=== PATIENT | male | born 1955 | race Hispanic/Latino ===

== ENCOUNTER → 2017-05-21 | Outpatient (CLI) | payer OTHER ==
--- NOTE | 2017-05-21 18:28 | Diagnostic Imaging Report ---
PROCEDURE:X-RAY RIGHT KNEE, THREE OR MORE VIEWS COMPARISON:None. INDICATIONS:FALL, RIGHT KNEE PAIN FINDINGS: The bones are well-mineralized. There are no subluxations, lytic or blastic lesions. Hypo-density in the superior aspect of the patella which may represent bone contusion, incomplete fracture, or cartilaginous trauma with underlying bony contusion. Associated moderate joint effusion. CONCLUSION: Hypo-density in the superior aspect of the patella which may represent bone contusion, incomplete fracture, or cartilaginous trauma with underlying bony contusion. Dictated by: Vick Hernandez M.D. on 05/21/2017 at 18:37 Electronically approved by: Vick Hernandez M.D. on 05/21/2017 at 18:37
== END ==
LOC: RAD 15:01
PROVIDERS: ATTEND Family Medicine
DX: M25.561 Pain in right knee (principal)

== ENCOUNTER → 2017-06-04 | Outpatient (CLI) | payer OTHER ==
--- NOTE | 2017-06-05 09:21 | Diagnostic Imaging Report ---
Right knee MRI without contrast. History: Knee pain. Medial meniscus tear. Fall. Decreased range of motion. Comparison: None. Technique: Multiplanar multi-sequence MRI of the knee without contrast. Findings: Medial compartment: There is a complex undersurface tear at the posterior horn of the medial meniscus best seen on sagittal series 2 image 13. The medial compartmental articular cartilage surfaces are thinned with regions of fraying and deep fissuring. There is mild bone marrow edema along the posterior medial femoral condyle. The medial collateral ligament complex is intact. Lateral compartment: No meniscal tear or cartilage abnormality. The LCL complex is normal. Intercondylar notch: The ACL and PCL are intact. Patellofemoral compartment: There is articular cartilage fraying and deep fissuring in the patellofemoral compartment with underlying bone marrow edema best seen on series 4 image 12. Extensor mechanism: The quadriceps and patellar tendons are normal. Other findings: There is a joint effusion and synovitis. There is no acute fracture, subluxation or avascular necrosis. IMPRESSION: Complex meniscus tear with mild degenerative arthrosis in the medial compartment of the knee. Articular cartilage fraying and deep fissuring in the patellofemoral compartment with underlying bone marrow edema. Signed by: Dr. Félix Avila M.D. on 06/05/2017 9:17 AM
== END ==
LOC: MRI 14:32
PROVIDERS: ATTEND Specialist
DX: S83.241A Other tear of medial meniscus, current injury, right knee, initial encounter (principal)

== ENCOUNTER → 2017-06-26 | Day surgery (SDC) | payer OTHER ==
[~2017-06-26] MED LIST: BUPIVACAINE 0.5%/EPI 30 ML SDV INJ ONE; CEFAZOLIN SOD 2 GM/D5W 50ML 50 ML IV ONE; DEXAMETHASONE SOD PHOS INJ 4 MG/ML VIAL ONE; FENTANYL CITRATE/PF 100MCG/2 ML INJ ONE; KETOROLAC TROMETHAMINE 30 MG/ML VIAL ONE; LIDOCAINE HCL 2% LOCAL INJ 5 ML SDV VIAL INJ ONE; LISINOPRIL40 MG PO; MIDAZOLAM HCL 2 MG/2 ML VIAL ONE; ONDANSETRON HCL INJ 2 MG/ML VIAL ONE; PRAVASTATIN SOD40 MG PO; PROPOFOL IV EMULSION 10 MG/ML 20 ML VIAL ONE; SERTRALINE HCL100 MG PO; SEVOFLURANE INHAL SOLN 250 ML PEN BTL ONE; TRAZODONE HCL50 MG PO
--- OUTSIDE RECORDS SUMMARY | 2017-06-26 09:22 | XMS REPORT ---
Author Author [facility] Address Unknown Phone Unavailable Care Team Providers Care Patternmaker Hand Name Role Phone SEAN RAE Unavailable Unavailable MARTY IZQUIERDO Unavailable Unavailable Problems This patient has no known problems. Allergies, Adverse Reactions, Alerts This patient has no known allergies or adverse reactions. Medications This patient has no known medications. Results Test Description Test Time Test Comments Text Results Atomic Results Result Comments MRI RIGHT KNEE WO [place] [address] Patient Name: ELIZABETH CAMPOS MR #: [id number] : 1955 Age/Sex: 62/M Req # : [id number] Adm Physician: Ordered by: SEAN RAE MD Report #: [id number] Location: MRI Room/Bed: Procedure: [id number] MRI/MRI RIGHT KNEE WO Exam Date: Exam Time: REPORT STATUS: Signed Right knee MRI without contrast. History: Knee pain. Medial meniscus tear. Fall. Decreased range of motion. Comparison: None. Technique: Multiplanar multi-sequence MRI of the knee without contrast. Findings: Medial compartment: There is a complex undersurface tear at the posterior horn of the medial meniscus best seen on sagittal series 2 image 13. The medial compartmental articular cartilage surfaces are thinned with regions of fraying and deep fissuring. There is mild bone marrow edema along the posterior medial femoral condyle. The medial collateral ligament complex is intact. Lateral compartment: No meniscal tear or cartilage abnormality. The LCL complex is normal. Intercondylar notch: The ACL and PCL are intact. Patellofemoral compartment: There is articular cartilage fraying and deep fissuring in the patellofemoral compartment with underlying bone marrow edema best seen on series 4 image 12. Extensor mechanism: The quadriceps and patellar tendons are normal. Other findings: There is a joint effusion and synovitis. There is no acute fracture, subluxation or avascular necrosis. IMPRESSION: Complex meniscus tear with mild degenerative arthrosis in the medial compartment of the knee. Articular cartilage fraying and deep fissuring in the patellofemoral compartment with underlying bone marrow edema. Signed by: Dr. Félix Avila M.D. on 06/05/2017 9:17 AM Dictated By: FÉLIX AVILA MD, MD 6 Transcribed By: PALMIRA on 06/05/17916 COPY TO: SEAN RAE MD KNEE RIGHT THREE VIEWS [place] [address] Patient Name: ELIZABETH CAMPOS MR #: [id number] : 1955 Age/Sex: 62/M Req #: [id number] Adm Physician: Ordered by: TIMBO INGRAM, MARTY Pérez MD Report #: [id number] Location: [facility] Room/Bed: ____ Procedure: [id number] DX/KNEE RIGHT THREE VIEWS Exam Date: 05/21/17 Exam Time: 1530 REPORT STATUS: Signed PROCEDURE : X-RAY RIGHT KNEE, THREE OR MORE VIEWS COMPARISON: None. INDICATIONS: FALL, RIGHT KNEE PAIN FINDINGS: The bones are well- mineralized. There are no subluxations, lytic or blastic lesions. Hypo -density in the superior aspect of the patella which may represent bone contusion, incomplete fracture, or cartilaginous trauma with underlying bony contusion. Associated moderate joint effusion. CONCLUSION: Hypo- density in the superior aspect of the patella which may represent bone contusion, incomplete fracture, or cartilaginous trauma with underlying bony contusion. Dictated by: Antonella Carson M.D. on 05/21/2017 at 18:37 Electronically approved by: Antonella Carson M.D. on 05/21/2017 at 18:37 Dictated By: ANTONELLA CARSON MD 36 Transcribed By: JOSE on 05/21/171836 COPY TO: MARTY IZQUIERDO
--- NOTE | 2017-06-26 18:14 | Operative Report ---
DATE OF PROCEDURE: June 26, 2017 PREOPERATIVE DIAGNOSIS: 1. Right knee medial meniscus tear. 2. Right knee degenerative joint disease of the knee. POSTOPERATIVE DIAGNOSIS: 1. Right knee medial meniscus tear. 2. Right knee lateral meniscus tear. 3. Right knee degenerative joint disease of the knee. PROCEDURE PERFORMED: The patient underwent a 1. Right knee examination under anesthesia. 2. Right knee arthroscopy. 3. Right knee partial medial meniscectomy. 4. Right knee partial lateral meniscectomy. 5. Right knee chondroplasty of the patella, the trochlea, the medial femoral condyle and the medial plateau. TELEVISION WRITER: Janett Laguna PA-C ANESTHESIA: General endotracheal intubation anesthesia. IV FLUIDS: As per the anesthesia record. DESCRIPTION OF PROCEDURE: Mr. Mack was taken to the operating room and placed in the supine position on the operating table. Following induction of general anesthesia as well as endotracheal intubation, the patient's right lower extremity was examined under anesthesia. He was found to have a mild effusion within the knee joint but an otherwise ligamentously stable knee. The patient's lower extremity was prepped and draped in standard surgical fashion. A 2-portal technique was used to provide this patient an arthroscopic evaluation of the knee joint. Examination of the suprapatellar pouch and medial and lateral gutters found no evidence of loose bodies. There was, however, evidence of chondromalacia of the patellar and trochlear surfaces. The scope was advanced into the medial compartment, and examination of the medial compartment demonstrated a torn and macerated medial meniscus. There also chondromalacia of articulating surfaces. A combination of biting forceps and a motorized shaver were used to resect the torn portion of the meniscus. Chondroplasties of the medial femoral condyle and medial tibial plateau were performed at this time. The scope was then advanced to the intercondylar notch. The anterior cruciate ligament was identified and found to be intact. The scope was then advanced into the lateral compartment, and examination of the lateral compartment demonstrated a torn lateral meniscus. A combination of biting forceps and a motorized shaver were used to resect the torn portion of the meniscus. The scope was then placed into the suprapatellar pouch, and chondroplasties of the patella and trochlea were performed. The knee was then deflated of its normal saline. Each of the portal sites was closed using 4-0 nylon suture. The portal sites as well as the knee itself were then injected with half percent Marcaine with epinephrine. Sterile dressings were applied, and the patient was then awakened and taken to the postanesthesia care unit in stable condition. Janett Laguna acted as the food and beverage assistant for this case and was necessary for both the prepping and draping of the patient as well as positioning the leg that allowed this case to be successful during surgery. Job#: [id number] EV
== END | disposition home or self-care (01) ==
LOC: OR 09:20
PROVIDERS: ATTEND Specialist
DX: S83.241A Other tear of medial meniscus, current injury, right knee, initial encounter (principal); S83.261A Peripheral tear of lateral meniscus, current injury, right knee, initial encounter; M17.11 Unilateral primary osteoarthritis, right knee; M22.41 Chondromalacia patellae, right knee; I10 Essential (primary) hypertension; E78.5 Hyperlipidemia, unspecified; F32.9 Major depressive disorder, single episode, unspecified; F17.210 Nicotine dependence, cigarettes, uncomplicated; X58.XXXA Exposure to other specified factors, initial encounter; Z01.810 Encounter for preprocedural cardiovascular examination; Z68.36 Body mass index [BMI] 36.0-36.9, adult
CPT/HCPCS: 29880; 93005; J1100; J1885; J2001; J2250; J2405

== ENCOUNTER 2017-07-18 16:00 | Outpatient (RCR) | payer OTHER ==
[~2017-07-18 16:00] MED LIST changes: -BUPIVACAINE 0.5%/EPI 30 ML SDV INJ ONE; -CEFAZOLIN SOD 2 GM/D5W 50ML 50 ML IV ONE; -DEXAMETHASONE SOD PHOS INJ 4 MG/ML VIAL ONE; -FENTANYL CITRATE/PF 100MCG/2 ML INJ ONE; -KETOROLAC TROMETHAMINE 30 MG/ML VIAL ONE; -LIDOCAINE HCL 2% LOCAL INJ 5 ML SDV VIAL INJ ONE; -MIDAZOLAM HCL 2 MG/2 ML VIAL ONE; -ONDANSETRON HCL INJ 2 MG/ML VIAL ONE; -PROPOFOL IV EMULSION 10 MG/ML 20 ML VIAL ONE; -SEVOFLURANE INHAL SOLN 250 ML PEN BTL ONE
== END 2017-07-27 ==
LOC: PT 16:00
PROVIDERS: ATTEND Specialist
DX: M17.11 Unilateral primary osteoarthritis, right knee (principal); M25.561 Pain in right knee; R26.2 Difficulty in walking, not elsewhere classified; M62.81 Muscle weakness (generalized)

== ENCOUNTER 2017-08-08 16:00 | Outpatient (RCR) | payer OTHER | END 2017-08-26 | LOC: PT 16:00 | PROVIDERS: ATTEND Specialist | DX: M17.11 Unilateral primary osteoarthritis, right knee (principal); M25.561 Pain in right knee; R26.2 Difficulty in walking, not elsewhere classified; M62.81 Muscle weakness (generalized) | CPT/HCPCS: 97139 ==